=== PATIENT | male | born 1985 | race Caucasian/White ===

== ENCOUNTER 2016-07-04 20:54 | Emergency (ER) | payer MEDICAID ==
[2016-07-04 21:15] VITALS: RESP 16; TEMP 98.1
[2016-07-04] MEDS ORDERED: FLUORESCEIN SODIUM 1 MG STRIP OP ONE ×2 (21:33→21:35)
[2016-07-04] MEDS ORDERED: PROPARACAINE 0.5% 15 ML OPHT DROP ONE (21:33)
[2016-07-04] MEDS ORDERED: PROPARACAINE 0.5% 15 ML OPHT DROP LEFTEYE ONE (21:36)
[2016-07-04] MEDS ORDERED: CIPROFLOXACIN 0.3% DROPS PREPACK OPHT.BTL TAKEHOME ONE (21:49)
--- NOTE | 2016-07-04 21:51 | EDPHY ---
H & P Stated Complaint: L eye irritation, tearing HPI/ROS: Chief complaint: Left eye discomfort History of present illness: This is a 30-year-old male who wears disposable soft contact lenses who presents to the emergency department for left eye discomfort. He reports the onset of symptoms earlier today. In addition to discomfort he states his eye is tearing. He denies specific precipitating factors, no history of trauma, no cold symptoms, he has been using his contacts appropriately taking them out nightly. He denies other associated signs or symptoms including no visual disturbances. - Personal History Current Tetanus/Diphtheria Vaccine: Yes Current Tetanus Diphtheria and Acellular Pertussis (TDAP): Yes Tetanus Vaccine Date: 2012 - Medical/Surgical History Hx Asthma: No Hx Chronic Respiratory Disease: No Hx Diabetes: No Hx Cardiac Disease: No Hx Renal Disease: Yes Hx Cirrhosis: No Hx Alcoholism: No Hx HIV/AIDS: No Hx Splenectomy or Spleen Trauma: No Other PMH: Dialysis pt, HTN, hypothyroid, deaf, 2 kidney transplants - Social History Smoking Status: Never smoked - Physical Exam Exam: General Appearance: Alert, nontoxic. Eyes: Tearing of the left eye, no pustular discharge. Mild injection of the conjunctiva of the left. No subconjunctival hemorrhages. No hyphema. No hypopyon. PERRLA. EOM intact. Red reflex present bilaterally. ENT: Tympanic membranes, external auditory canals, external ears and surrounding soft tissue including over the mastoids are unremarkable. Nasopharynx is not injected. There is no rhinorrhea. Oropharynx is not injected. There is no edema. There is no exudate. There is no asymmetry. The uvula is midline. No elevation of the tongue. There is no hoarseness, no drooling, no trismus, no stridor. Respiratory: Chest is nontender, lungs are clear to auscultation. Cardiac: regular rate and rhythm. Skin: Periorbital tissue unremarkable. Constitutional: Initial Vital Signs Temperature (C) 36.7 C 07/04/16 21:14 Heart Rate 90 07/04/16 21:14 Respiratory Rate 16 07/04/16 21:14 Blood Pressure 174/106 H 07/04/16 21:14 O2 Sat (%) 99 07/04/16 21:14 O2 Delivery Mode Room Air Allergies/Adverse Reactions: No Known Allergies Allergy (Verified 02/19/17 21:13) Home Medications: Medication Instructions Recorded Calcium Carbonate [Tums 500MG (*)] 1,000 mg PO BID 06/25/13 Epoetin Eugene [Epogen] 3,300 unit IJ MOWEFR PRN 06/25/13 Multivitamins [Multivitamin (*)] 1 each PO DAILY 06/25/13 Labetalol HCl [Trandate 200 mg (*)] 600 mg PO TID #90 tab 08/28/13 Minoxidil [Minoxidil 2.5 mg (*)] 7.5 mg PO BID #60 tab 08/28/13 Medical Decision Making Procedures: Visual acuity 20/50 left eye, 20/40 right eye, 20/20 both eyes Patient's eye was anesthetized with proparacaine and stained with floor seen. It was examined with cobalt blue and white light. A small filling defect at the 3 o'clock position overlying the iris and pupil was noted. No foreign bodies. No Ivanna sign. No cell and flare. ED Course/Re-evaluation: Patient seen under the supervision of my secondary supervising physician Dr. David Le. Patient presents to the emergency department for left eye discomfort. Ultimately he appears to have a corneal abrasion. He will be started on ciloxin. Asked not to use his contacts until cleared by Ophthalmology. He is referred to ophthalmology and asked to get a recheck this week. Home care is discussed. Return precautions are given. Patient voiced understanding and agreement with plan. Differential Diagnosis: Included but not limited to corneal abrasion, corneal ulceration, foreign body, conjunctivitis - Data Points Medications Given: Discontinued Medications Ciprofloxacin (Ciloxan 0.3% Opht Drops Prepack) 1 btl TAKEHOME EDNOW ONE Stop: 07/04/16 21:50 Last Admin: 07/04/16 22:13 Dose: 1 btl Fluorescein Sodium (Lwkwf-F-Oudyk) 1 mg OP EDNOW ONE Stop: 07/04/16 21:36 Last Admin: 07/04/16 21:45 Dose: 1 mg Proparacaine HCl (Alcaine 0.5%) 1 drops LEFTEYE ONCE ONE Stop: 07/04/16 21:37 Last Admin: 07/04/16 21:45 Dose: 1 drop Departure - Departure Disposition: Home, Routine, Self-Care Clinical Impression: Corneal abrasion Qualifiers: Encounter type: initial encounter Laterality: left Qualified Code(s): S05.02XA - Injury of conjunctiva and corneal abrasion without foreign body, left eye, initial encounter Condition: Good Instructions: Ciprofloxacin (Into the eye), Corneal Abrasion (ED) Additional Instructions: Please call Ophthalmology tomorrow to arrange a follow-up appointment for recheck in 1-2 days Do not use contacts until told you can by Ophthalmology Placed 1 drop of the antibiotic in your eye every 4 hours while awake If symptoms worsen or new symptoms develop return to the emergency department for recheck Referrals: NONE *PRIMARY CARE P,. [Primary Care Provider] - As per Instructions Anu Valentino MD [Medical Doctor] - As per Instructions
[2016-07-04 22:15] VITALS: BP 156/87; PULSE 82; O2SAT 97
== END 2016-07-04 22:15 | disposition home or self-care (01) ==
DX: S05.02XA Injury of conjunctiva and corneal abrasion without foreign body, left eye, initial encounter (principal); I10 Essential (primary) hypertension; X58.XXXA Exposure to other specified factors, initial encounter

== ENCOUNTER 2017-03-29 09:46 | Inpatient (IN) | payer SELFPAY ==
--- NOTE | 2017-03-29 10:14 | CPEKG ---
Heart Rate: 105 RR Interval: 571 P-R Interval: 152 QRSD Interval: 98 QT Interval: 352 QTC Interval: 466 P Peninsula: 14 QRS Peninsula: 9 T Wave Peninsula: 73 EKG Severity - ABNORMAL ECG - EKG Impression: SINUS TACHYCARDIA EKG Impression: PROBABLE LEFT VENTRICULAR HYPERTROPHY Electronically Signed By: Chantelle Landry 29-Mar-2017 14:25:53
[2017-03-29 10:39] LABS: % IMMATURE GRANULYOCYTES 0.5 % (0.0-1.1); ABSOLUTE IMMATURE GRANULOCYTES 0.03 10^3/uL (0.00-0.10); ADD DIFF? NO; ADD MORPH? NO; ADD SCAN? NO; ATYPICAL LYMPHOCYTE FLAG 10 (0-99); FRAGMENT RBC FLAG 0 (0-99); HEMATOCRIT 28.4 % (40.0-51.0); HEMOGLOBIN 9.8 g/dL (13.7-17.5); LEFT SHIFT FLG 0 (0-99); LIPEMIA HEMOLYSIS FLAG 90 (0-99); MEAN CELL HEMOGLOBIN 30.9 pg (27.9-34.1); MEAN CELL HEMOGLOBIN CONCENTR. 34.5 g/dL (32.4-36.7); MEAN CELL VOLUME 89.6 fL (81.5-99.8); MEAN PLATELET VOLUME 9.3 fL (8.7-11.7); PLATELET CLUMPS FLAG 0 (0-99); PLATELET COUNT 257 10^3/uL (150-400); RED BLOOD CELL COUNT 3.17 10^6/uL (4.40-6.38)
--- NOTE | 2017-03-29 10:41 | EDPHY ---
H & P Smoking Status: Never smoked Time Seen by Provider: 03/29/17 10:30 HPI/ROS: CHIEF COMPLAINT: Left-sided chest pain since this morning HISTORY OF PRESENT ILLNESS: 31-year-old male history of renal transplant x2, Tuesday dialysis, awoke with left-sided pleuritic chest pain since this morning described as sharp, stabbing, worse with inspiration. Non positional. No chest pain with exertion or dyspnea with exertion. Today is Tuesday. He had dialysis yesterday described as uneventful. He has been experiencing concurrent URI symptoms for the past few days with nonproductive cough, positive rhinorrhea. No fever or chills. No nausea or vomiting. PRIMARY CARE PROVIDER: Dr. Keron Kim REVIEW OF SYSTEMS: A ten point review of systems was performed and is negative with the exception of the items mentioned in the HPI PAST MEDICAL & SURGICAL HISTORY: Renal transplant. Tuesday dialysis. SOCIAL HISTORY: nonsmoker. No cocaine use. PHYSICAL EXAM (Prior to examination, patient consented to physical exam, hands were washed and my usual and customary physical exam procedures followed) 1) GENERAL: Well-developed, well-nourished, alert and oriented. Appears to be in no acute distress. 2) HEAD: Normocephalic, atraumatic 3) HEENT: Pupils equal, round, reactive to light bilaterally. Sclera anicteric. Nasopharynx, oropharynx, clear, no lesions. 4) NECK: Full range of motion, no meningeal signs. No bruit 5) LUNGS: Clear auscultation bilaterally, no wheezes, no rhonchi, no retractions. 6) HEART: Regular rate and rhythm, no murmur, no heave, no gallop. 7) ABDOMEN: No guarding, no rebound, no focal tenderness, negative McBurney's, negative Ashley's, negative Rovsing's, negative peritoneal sign, 8) MUSCULOSKELETAL: Moving all extremities, no focal areas of tenderness, no obvious trauma. No peripheral edema or discoloration. Negative Homans no palpable cord 9) BACK: No CVA tenderness, no midline vertebral tenderness, no fluctuance, no step-off, no obvious trauma, no visual or palpable abnormality. 10) SKIN: No rash, no petechiae. 11) Psychiatric: Patient is oriented X 3, there is no agitation. DIFFERENTIAL DIAGNOSIS: In no particular order, including but not limited to myocardial ischemia, pulmonary embolus, chest wall pain, pleural inflammation and pulmonary infectious causes. (Wendy Carroll) Constitutional: Initial Vital Signs Temperature (C) 36.8 C 03/29/17 09:55 Heart Rate 112 H 03/29/17 09:55 Respiratory Rate 20 03/29/17 09:55 Blood Pressure 187/107 H 03/29/17 09:55 O2 Sat (%) 96 03/29/17 09:55 O2 Delivery Mode Room Air Allergies/Adverse Reactions: No Known Allergies Allergy (Verified 03/29/17 09:55) Home Medications: Medication Instructions Recorded Calcium Carbonate [Tums 500MG (*)] 1,000 mg PO BID 06/25/13 Epoetin Eugene [Epogen] 3,300 unit IJ MOWEFR PRN 06/25/13 Labetalol HCl [Trandate 200 mg (*)] 600 mg PO TID #90 tab 08/28/13 Minoxidil [Minoxidil 2.5 mg (*)] 7.5 mg PO BID #60 tab 08/28/13 Metoprolol Tartrate [Lopressor 25 50 mg PO BID 03/29/17 mg (*)] MDM/Departure - MDM Diagnostics: 12 lead EKG is interpreted in Trace master View by emergency department physician. (Chantelle Landry) Imaging Results: Images reviewed by myself (Wendy Carroll) Medications Given: Acetaminophen (Tylenol) 650 mg PO Q4HRS PRN PRN Reason: Pain, Mild/Fever, Can Take PO Stop: 09/25/17 12:34 Last Admin: 03/29/17 22:21 Dose: 650 mg Calcium Carbonate (Tums) 1,000 mg PO BID LASHELL Stop: 09/25/17 20:59 Last Admin: 03/29/17 20:15 Dose: 1,000 mg Labetalol HCl (Trandate Injection) 20 mg IVP Q4HRS PRN PRN Reason: sys >180 Stop: 09/25/17 16:01 Last Admin: 03/29/17 16:18 Dose: 20 mg Metoprolol Tartrate (Lopressor) 50 mg PO BID LASHELL Stop: 09/25/17 20:59 Last Admin: 03/29/17 20:16 Dose: 50 mg Minoxidil (Minoxidil) 7.5 mg PO BID LASHELL Stop: 09/25/17 20:59 Last Admin: 03/29/17 20:15 Dose: 7.5 mg Discontinued Medications Labetalol HCl (Labetalol Hcl) 10 mg IVP ONCE ONE Stop: 03/29/17 11:38 Last Admin: 03/29/17 11:49 Dose: Not Given Labetalol HCl (Trandate Injection) 10 mg IVP ONCE ONE Stop: 03/29/17 11:46 Last Admin: 03/29/17 11:49 Dose: 10 mg ED Course/Re-evaluation: 10:44 a.m.: Will obtain diagnostic studies on this patient. Old medical records reviewed. Discussed the case with secondary supervising physician Dr. Chantelle Landry in the ER. 11:48 a.m.: Consultation with hospitalist, Elsa, admit to Dr. Damon PCU 12:07 p.m.: Phone consultation with Dr. Keron Kim who is familiar with the patient, he will consult Nephrology (Wendy Carroll) The patient was evaluated and managed by the physician land surveyor assistant. I have reviewed this chart and I agree with the findings and plan of care as documented , as indicated by my signature. I am the secondary supervising physician. I reviewed the patient's chest x-ray and laboratory studies. (Chantelle Landry) - Depart Disposition: [facility] Inpatient Acute Clinical Impression: Elevated troponin, End stage renal disease Chest pain Qualifiers: Chest pain type: chest pain on breathing Qualified Code(s): R07.1 - Chest pain on breathing Fluid overload Qualifiers: Hypervolemia type: other Qualified Code(s): E87.79 - Other fluid overload Hypertension Qualifiers: Hypertension type: unspecified Qualified Code(s): I10 - Essential (primary) hypertension Condition: Fair
[2017-03-29 10:48] LABS: ANION GAP 18 mEq/L (8-16); CALCIUM 9.2 mg/dL (8.5-10.4); CARBON DIOXIDE 28 mEq/l (22-31); CHLORIDE 94 mEq/L (97-110); GLOMERULAR FILTRATION RATE 7; GLUCOSE 121 mg/dL (70-100); SODIUM 140 mEq/L (134-144)
[2017-03-29 10:51] LABS: CREATININE 9.1 mg/dL (0.7-1.3)
[2017-03-29 11:00] LABS: TROPONIN I 0.072 ng/mL (0.000-0.034)
[2017-03-29] MEDS ORDERED: LABETALOL HCL 50 MG/10 ML SYR IVP ONE (11:37)
[2017-03-29] MEDS ORDERED: LABETALOL HCL 5 MG/ML 20 ML MDV IVP ONE (11:45)
[2017-03-29] MEDS ORDERED: HYDROmorphONE/DILAUDID 1 MG/ML INJ IVP PRN (12:35)
[2017-03-29] MEDS ORDERED: ONDANSETRON DISINTEGRATING 4 MG TAB PO PRN (12:35)
[2017-03-29] MEDS ORDERED: HYDROCODONE/APAP 5/325 TAB PO PRN (12:35)
[2017-03-29] MEDS ORDERED: ONDANSETRON 4 MG/2 ML VIAL IVP PRN (12:35)
[2017-03-29] MEDS ORDERED: HYDROmorphone HCL/NS/PF 0.4 MG/2 ML SYR IVP PRN (12:47)
--- NOTE | 2017-03-29 14:29 | ASMTCASEMG ---
Living Arrangements What is your living Answers: Alone arrangement? Who do you live with? Type Of Residence What kind of residence do Answers: House you live in? Discharge Plan Comments Coordination Status Comments Notes: Pt is a 31 y/o man admitted for left sided chest pain. Pt has a hx of renal transplant x2. Pt is a dialysis pt. Anticaptes that pt will d/c independent without any needs. No therapies ordered at this time. CM available for changes. Date Signed: 03/29/2017 02:28 PM Electronically Signed By:HUA Lan
[2017-03-29] MEDS ORDERED: LABETALOL HCL 5 MG/ML 20 ML MDV IVP PRN (16:02)
--- NOTE | 2017-03-29 16:17 | ECHO ---
[email or web address] [address] [address] Main: [phone] Fax: Transthoracic Echocardiogram Name: RAMIRO KRUGER MR#: [id number] Study Date: 03/29/2017 Study Time: 01:29 PM Date of : 1985 Age: 31 year(s) Height: 175.3 cm (69 in.) Weight: 82.55 kg (182 lb.) BSA: 1.98 m2 Gender: Male Examination: Echo Indication: Chest pain/renal transplant Image Quality: Contrast: Requested by: Keron Kim BP: 184 mmHg/116 mmHg Heart Rate: Rhythm: Indication: Chest pain/renal transplant Procedure Staff Nuclear Waste Management Engineer: Maureen Bhatti Reading Physician: Willie Pappas Requesting Provider: Conclusions: Normal size left ventricle. Mild concentric LV hypertrophy. Normal global systolic LV function. EF is 76 %. Mild mitral valve regurgitation is present. Trivial aortic valve regurgitation. Mild tricuspid regurgitation is present. The pulmonary artery pressure is normal. Measurements: Chambers Valvular Assessment AV/MV Valvular Assessment TV/PV Normal Normal Normal Name Value Range Name Value Range Name Value Range Ao Etelvina (MM): 4.4 cm (2.2 cm-3.7 AV meanP mmHg ( - ) TR Vmax: 2.85 mm/s ( - ) cm) MV E Vmax: 1.27 m/s ( - ) TR PGmax: 32 mmHg ( - ) IVSd (2D): 1.1 cm (0.6 cm-1.1 MV A Vmax: 0.78 m/s ( - ) syst. PAP: 37 mmHg ( - ) cm) MV E/A: 1.63 ( - ) LVDd (2D): 5.4 cm (4.2 cm-5.9 cm) LVDs (2D): 3.3 cm (2.1 cm-4 cm) LVPWd (2D): 1.4 cm (0.6 cm-1 cm) LVEF (MOD4): 76 % (>=55 %) Continued Measurements: Chambers Valvular Assessment AV/MV Valvular Assessment TV/PV Name Value Name Value Name Value LADs: 4.5 cm MV E/E' Septal: 18.10 CVP (est.): 5 mmHg Patient: RAMIRO KRUGER Study Date: 03/29/2017 Page 1 of 2 01:29 PM LADs Lon.4 cm MV E/E' Lateral: 16.50 LA Area: 18.5 cm2 Additional Vessels Name Value Ao Ascendin.4 cm Findings: Left Ventricle: Normal size left ventricle. Mild concentric LV hypertrophy. Normal global systolic LV function. EF is 76 %. No regional wall motion abnormality. Normal diastolic LV function. Right Ventricle: Normal size right ventricle. Left Atrium: The left atrium is normal in size. Mitral Valve: The mitral valve is normal in appearance and function. Mild mitral valve regurgitation is present. Aortic Valve: The aortic valve is normal in appearance and function. Trivial aortic valve regurgitation. Tricuspid Valve: The tricuspid valve is normal in appearance and function. Mild tricuspid regurgitation is present. The pulmonary artery pressure is normal. Pulmonic Valve: The pulmonic valve is normal in appearance and function. Trivial to mild pulmonic valve regurgitation. Aorta: The aorta is normal. Pericardium: No pericardial effusion. (No Signature Object) Patient: RAMIRO KRUGER Study Date: 03/29/2017 Page 2 of 2 01:29 PM [id number]
--- NOTE | 2017-03-29 18:02 | GHP ---
[f rep st] HISTORY AND PHYSICAL DATE OF ADMISSION: 03/29/2017 CHIEF COMPLAINT: Chest pain. HISTORY OF PRESENT ILLNESS: The patient is a 31-year-old man with history of end-stage renal disease and chronic hemodialysis, that came to the emergency department today because of a new onset of chest pain. He says that for about the last 2 weeks, he has been having increased blood pressures. He does hemodialysis 3 times a week. Says casting and pasting supervisor has made changes to his chronic medications but blood pressures have remained elevated. He says this morning he woke up with a sharp chest pain in the left side of his chest. He denied shortness of breath. He denies any heartburn symptoms. He says this pain was similar to episodes he had in 2013 when he was admitted a few times to [facility] because of chest pain and hypertensive emergency. He has had a mild headache. He denies any visual changes. He had a mild cough and cold a few weeks ago, but denied any fever at that time or currently. He says that he no longer feels sick, but he has had a little bit of a cough that has been dry mostly in the morning and at night. He denies any vomiting, diarrhea, or abdominal pain. He was receiving hemodialysis when I saw him, and he says that he is currently chest pain free. He describes an issue that was recently noted at hemodialysis where 'not enough fluid volume was taken off', but he said that was corrected and has had at least a few dialysis sessions that were "back to normal." REVIEW OF SYSTEMS: A complete review of systems was conducted and negative, except as noted in the HPI. PAST MEDICAL HISTORY: 1. end-stage renal disease with hemodialysis on Tuesday, Tuesday, Tuesday, primary casting and pasting supervisor is Dr. Kim. 2. Anemia of chronic disease. 3. Chronic hypercalcemia. 4. Hypertension. 5. Depression. 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 MEDICATIONS: Minoxidil 7.5 mg twice a day. Lopressor 50 mg twice a day. Epo as needed. Calcium carbonate 1000 mg twice a day. He had been on labetalol 600 mg 3 times a day, but reports this was recently changed in favor of metoprolol. ALLERGIES: No known drug allergies. SOCIAL HISTORY: Denies tobacco, alcohol, or drug use. 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 PHYSICAL EXAM: VITAL SIGNS: Blood pressure was 165/107, but was as high as 188/115, pulse 96, temperature is 99.3, and he was 94% on room air. GENERAL: He is a pleasant male in no apparent distress. HEENT: Normocephalic, atraumatic. Extraocular movements are intact. Sclerae are anicteric. Conjunctivae are not injected. Mucous membranes are moist. NECK: Supple. No JVD noted. LUNGS: Clear to auscultation bilaterally. CARDIOVASCULAR: Regular rate and rhythm with a pronounced/hyperdynamic S1, S2, but no murmurs appreciated. ABDOMEN: Soft, nontender, nondistended. Normoactive bowel sounds. No masses noted. EXTREMITIES: No edema. NEUROLOGICAL: Grossly nonfocal/intact. SKIN: Shows cap refill less than 2 seconds. PSYCH: alert/oriented LABS: White blood cell count 6.5, hemoglobin 9.8, hematocrit 28.4, platelet count of 257 (stable hemoglobin, hematocrit per chart review). D-dimer is 0.32. Sodium 140, potassium 4.0, chloride of 94, carbon dioxide 28, anion gap of 18, BUN of 44, creatinine 9.1, glucose 121. Troponin 0.072. ProBNP is 3200. Chest x-ray showed diffuse ground-glass pattern with some cephalization, personally reviewed by myself. EKG showed sinus tachycardia with an LVH by voltage. No Q-waves. Normal ST segments. ASSESSMENT/PLAN: 1. Chest pain. He is admitted to telemetry for observation. Serial troponins ordered. He is currently receiving hemodialysis. Echocardiogram has been ordered and final review is pending at time of dictation. Suspect left ventricular strain causing a slight bump in troponins. Low threshold to consult Cardiology if further elevation or abnormal telemetry noted. We will hold off on anticoagulation as he is currently on dialysis. P.r.n. labetalol has been ordered for systolics greater than 180. 2. End-stage renal disease, having dialysis today. Nephrology has also already seen him and their input is appreciated. Likely will have hemodialysis again tomorrow, but will defer to Nephrology. DISPOSITION: Admitted for observation, but may need to be changed to inpatient depending on cardiac evaluation and response to hemodialysis and blood pressure management. DEEP VENOUS THROMBOSIS PROPHYLAXIS: Ambulation, pharmacological deferred at this time. /[id number]/MODL MTDD
[2017-03-29] MEDS: MINOXIDIL 2.5 MG TAB PO SCH (20:15)
[2017-03-29] MEDS: CALCIUM CARBONATE 500 MG CHEWABLE TAB PO SCH (20:15)
[2017-03-29] MEDS: METOPROLOL TARTRATE 50 MG TAB PO SCH (20:16)
--- NOTE | 2017-03-29 21:58 | GCON ---
[f rep st] CONSULTATION NEPHROLOGY CONSULTATION DATE OF CONSULTATION: 03/28/2017 REASON FOR CONSULTATION: End-stage renal disease, refractory hypertension. 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 on a Tuesday, Tuesday, Tuesday schedule. He has been under my care for many years, and I know him well. The patient is an excellent historian. The patient has been very compliant with his dialysis. Approximately 4 weeks ago, he went through a period where there were some technical issues with his dialysis machine, and he did not get significa nt ultrafiltration on several runs. His weight increased to around 88 kg above his normal dry weight of 83. At that time, his blood pressure did begin increasing. Since that time, we have steadily de creased his dry weight and, most recently, he has been between 80 and 81 kg. In addition, we have increased his antihypertensives. With this, he has not really noticed major improvements in his blood pressure. Over the past 3 weeks, the patient has felt as if he has had an upper and lower respiratory tract inf ection. He feels his energy level and appetite may be down slightly. He has had some epistaxis. He has not had a productive cough. He has not been taking decongestants. The patient was awakened this a.m. with sharp mid epigastric to substernal pains. These would last a few seconds and then dissipate. Because of this, he presented to the emergency room for further otoniel luation. In the emergency room, he was found to have some alveolar infiltrates and was hypertensive. He is now being admitted for definitive care. Relating to these findings, we are asked by the [facility] physician to assist the patient's renal diagnosis and management. PAST MEDICAL HISTORY: 1. HDR syndrome. 2. Status post 2 failed transplants. Both transplants failed due to noncompliance. The most recent transplant was performed at the [facility] from a cadaveric source. He returned to dial ysis in 2012. 3. Persistent hypocalcemia due to his genetic hypoparathyroidism. 4. Hypertension. 5. Depression. PAST SURGICAL HISTORY: 1. Fistula placement. 2. Transplants x2. 3. Transplant nephrectomy. 4. Urology surgeries as a child. FAMILY HISTORY: Noncontributory. HOME MEDICATIONS: 1. Labetalol 200 mg in the morning, 300 mg at night. 2. Minoxidil 7.5 mg b.i.d. 3. Calcium carbonate with meals. SOCIAL HISTORY: The patient is from the [place] area. He lives independently in [place]. 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 He does not smoke ciga rettes or drink alcohol. REVIEW OF SYSTEMS: GENERAL: He has not had fevers, chills or sweats. His appetite may be mildly de creased. HEENT: He has had a mild headache. He denies vision disturbances. He has had some rhinit is and some mild epistaxis. He denies a sore throat. RESPIRATORY: He has had some cough. CARDIAC: He has the aforementioned atypical chest pain. GASTROINTESTINAL: He denies abdominal pain, consti pation, or diarrhea. He denies dysuria. EXTREMITIES: He denies lower extremity edema. SKIN: He d enies skin rashes. ENDOCRINE: He does not have a history of thyroid or diabetes. He does have hypo parathyroidism. PHYSICAL EXAMINATION: GENERAL: At the time of exam, the patient is well-developed, well-nourished, alert and oriented. VITAL SIGNS: Temperature afebrile. Pulse 97. Blood pressure 165/107. EYES: Sclerae clear. OROPHARYNX: Clear. NECK: No lymphadenopathy or thyromegaly. LUNGS: Some coarse b reath sounds are heard throughout. CARDIOVASCULAR: Regular rate and rhythm with a systolic murmur a t the left upper sternal border. ACCESS: The patient does have access with a significant pseudoaneu rysm. Flow has been good through his access. ABDOMEN: Nontender. /RECTAL: Deferred. EXTREMITI ES: No lower extremity edema. INTEGUMENT: Clear. NEURO: No focal findings. LABORATORY STUDIES: White count 6.5, hematocrit 28.4, platelets 257. Sodium 140, potassium 4.0, cre atinine 9.1, calcium 9.2. Troponin 0.072. IMPRESSION AND PLAN: 1. Severe hypertension. The patient previously had an episode of severe hypertension. He ultimatel y improved by aggressive volume removal. Prior to that volume removal, he was refractory to antihype rtensive agents. At this point, his rather sudden onset of hypertension is a bit confusing, but I do believe our first line of therapy should be additional volume removal. We will plan on ultrafilteri ng him today and again aggressively removing fluid tomorrow. He does not overtly show evidence of vo lume overload on exam. He has been receiving some erythropoietin as an outpatient, but not at high d oses. If this does not improve his blood pressures, then we will need to do further adjustment in hi s medications and perform additional evaluation for the etiology of this new onset of worsened hypert ension. 2. Anemia. This is mild and stable. I will withhold erythropoietin for now given his hypertension. 3. Pulmonary infiltrates. I do believe this is congestive heart failure. However, given his recent symptoms of potentially upper respiratory infection and lower respiratory tract infection, we should consider a noncontrast CT scan if there are further concerns for an atypical pneumonitis. 4. End-stage renal disease. The patient will continue dialysis on a Tuesday, Tuesday, Tuesday sched ul. I will ask Dr. Louise to stop by and evaluate his pseudoaneurysm while he is in-house. Thank you for allowing us to participate in this patient's care. We will continue following closely with you. /[id number]/MODL
[2017-03-29] MEDS ORDERED: LABETALOL HCL 200 MG TAB PO SCH (22:00)
[2017-03-29] MEDS: ACETAMINOPHEN 325 MG TAB PO PRN (22:21)
[2017-03-30 05:59] LABS: ANION GAP 18 mEq/L (8-16); CALCIUM 8.9 mg/dL (8.5-10.4); CARBON DIOXIDE 26 mEq/l (22-31); CHLORIDE 94 mEq/L (97-110); GLOMERULAR FILTRATION RATE 6; GLUCOSE 79 mg/dL (70-100); POTASSIUM 4.2 mEq/L (3.5-5.2); SODIUM 138 mEq/L (134-144)
[2017-03-30 06:12] LABS: CREATININE 10.8 mg/dL (0.7-1.3)
--- NOTE | 2017-03-30 11:44 | SOAPPROG ---
SOAP Progress Note Assessment/Plan: 1. chest pain, resolved -sl elev trop x 2 but stable, no EKG changes, no further sxs -related to severe hypertension -revwd echo findings with him -no further cardiac eval indicated at this time 2. severe HTN -improved after dialysis and prn labetolol yesterday -no further prn doses given and 140-160 sys -no changes to home meds at this time 3. ESRD, chronic dialysis -per nephro, Dr Hamilton rounding today -usually MWF, Dr Kim renal PCP -pending eval with surgery re fistula also per renal request 4. Anemia, from ESRD -stable Subjective: Denies further CP. No SOB/n/v/d/abd pain. Still with occ dry cough. In dialysis. Objective: Vital Signs Temp Pulse Resp BP Pulse Ox 98.8 F 91 18 163/103 H 99 03/30/17 07:16 03/30/17 07:16 03/30/17 07:16 03/30/17 07:16 03/30/17 07:16 Laboratory Results 03/30/17 03:43 03/28/17 03/29/17 03/30/17 11:59 11:59 11:59 Intake Total 420 Output Total 2000 Balance -1580 - Pending Discharge Pending Discharge Within 48 Hours: Yes Pending Discharge Date: 04/01/17 Pending Discharge Time: 11:00 Physical Exam - Physical Exam General Appearance: WD/WN, alert, no apparent distress EENT: normal ENT inspection, pharynx normal Respiratory: chest non-tender, lungs clear, normal breath sounds, No respiratory distress Cardiac/Chest: regular rate, rhythm, No edema, No JVD, No diastolic murmur, No systolic murmur Abdomen: normal bowel sounds, non-tender, soft Skin: normal color, warm/dry Neuro/Psych: alert, normal mood/affect ICD10 Worksheet Patient Problems: Problems Problem Status Onset Chest pain Acute Elevated troponin Acute End stage renal disease Acute Fluid overload Acute Hypertension Acute Corneal abrasion Acute Hypertensive emergency without congestive heart failure Acute Right heart failure Acute
[2017-03-30] MEDS: CALCIUM CARBONATE 500 MG CHEWABLE TAB PO SCH ×2 (12:41→18:13)
[2017-03-30] MEDS: METOPROLOL TARTRATE 50 MG TAB PO SCH ×2 (12:41→20:42)
[2017-03-30] MEDS: MINOXIDIL 2.5 MG TAB PO SCH ×2 (12:41→20:42)
[2017-03-30] MEDS: ACETAMINOPHEN 325 MG TAB PO PRN ×2 (13:46→20:43)
--- NOTE | 2017-03-30 15:33 | SOAPPROG ---
SOKIA Progress Note Assessment/Plan: Assessment: 1. esrd: s/p hd earlier today on typical mwf schedule. Will plan add'l isolated UF treatment tomorrow for volume/hypertension in effort to decrease edw a bit. 2. htn: case d/w Dr. Kim earlier. Pt very volume responsive in past even in absence of other clinical signs of overload. Though bp improved from admit it remains high. Suspect would benefit from add'l decrease in edw, will UF again tomorrow as above. 3. cp: resolved, likely driven at least in part by htn. 4. dispo: should be able to d/c tomorrow s/p dialysis. Plan: 03/30/17 15:20 03/30/17 15:33 Subjective: S/p hd earlier today with 3L uf, had some mild cramping near end of treatment. Had 2L uf during isolated UF treatment yesterday. No further cp. Objective: Vital Signs Temp Pulse Resp BP Pulse Ox 37.2 C 92 16 149/95 H 95 03/30/17 12:37 03/30/17 13:43 03/30/17 12:37 03/30/17 13:43 03/30/17 12:37 Laboratory Results 03/30/17 03:43 03/29/17 03/30/17 03/31/17 05:59 05:59 05:59 Intake Total 420 Output Total 2000 3000 Balance -1580 -3000 Physical Exam - Physical Exam General Appearance: alert, no apparent distress Respiratory: lungs clear Cardiac/Chest: regular rate, rhythm Extremities: pedal edema (none), other (+patent LUE avf) ICD10 Worksheet Patient Problems: Problems Problem Status Onset Chest pain Acute Elevated troponin Acute End stage renal disease Acute Fluid overload Acute Hypertension Acute Corneal abrasion Acute Hypertensive emergency without congestive heart failure Acute Right heart failure Acute
--- NOTE | 2017-03-30 16:29 | PDMN ---
Medical Necessity Medical necessity: M325 renal failure- chronic- NSRD req HD, with CP HTN,
--- NOTE | 2017-03-30 17:24 | SOAPPROG ---
KIA Progress Note Assessment/Plan: Assessment: 31-year-old male here for dialysis/has an enlarging pseudoaneurysm of his right arm AV fistula/no skin ulcerations or erosions/adequate fistula flow He is having no obvious symptoms or problems with this Plan: Would recommend observation at this point/if the pseudoaneurysm is causing difficulties with dialysis could easily be resected. However that would mean is fistula would be down for 2 weeks requiring a neck catheter for dialysis/will discuss with Dr. Kim 03/30/17 17:22 Objective: Vital Signs Temp Pulse Resp BP Pulse Ox 37.2 C 93 16 141/79 H 94 03/30/17 16:15 03/30/17 16:15 03/30/17 16:15 03/30/17 16:15 03/30/17 16:15 Laboratory Results 03/30/17 03:43 03/29/17 03/30/17 03/31/17 05:59 05:59 05:59 Intake Total 420 240 Output Total 1999 3000 Balance -1249 -1748 ICD10 Worksheet Patient Problems: Problems Problem Status Onset Chest pain Acute Elevated troponin Acute End stage renal disease Acute Fluid overload Acute Hypertension Acute Corneal abrasion Acute Hypertensive emergency without congestive heart failure Acute Right heart failure Acute
[2017-03-31 07:12] VITALS: RESP 15
--- NOTE | 2017-03-31 09:34 | SOAPPROG ---
SOAP Progress Note Assessment/Plan: Assessment/Plan: ESRD: on HD MWF. - Doing extra PUF today. - Will need HD tomorrow per routine, can be done at outpatient dialysis unit. Hypervolemia: improved with extra fluid removal this week, will do additional PUF today. HTN: Improved with increased fluid removal. - Will do extra PUF today for more fluid removal. Disposition: would recommend discharge today after PUF treatment unless some other issue encountered. Subjective: No acute events overnight. Pt states that he is feeling fine, no chest pain, no dyspnea, no swelling. He had no issues with HD yesterday. ROS: Positive per above, rest of 10-point ROS negative Objective: Vital Signs Temp Pulse Resp BP Pulse Ox 37.3 C 108 H 15 140/90 H 93 03/31/17 07:11 03/31/17 07:11 03/31/17 07:11 03/31/17 07:11 03/31/17 07:11 Laboratory Results 03/30/17 03:43 03/30/17 03/31/17 04/01/17 05:59 05:59 05:59 Intake Total 420 790 Output Total 1999 3000 Balance -1580 -2210 General: alert and oriented, no acute distress Eyes; EOMI, PERRL OP: Clear CV: RRR Resp: nonlabored respirations on RA, CTA bilat Abd: Soft, NT/ND Ext: no edema BLE Neuro: CN II-XII grossly intact, no asterixis Psych: cooperative, appropriate mood and affect Access: LUE AVF with thrill and bruit, large aneurysm noted ICD10 Worksheet Patient Problems: Problems Problem Status Onset Chest pain Acute Elevated troponin Acute End stage renal disease Acute Fluid overload Acute Hypertension Acute Corneal abrasion Acute Hypertensive emergency without congestive heart failure Acute Right heart failure Acute
[2017-03-31] MEDS: METOPROLOL TARTRATE 50 MG TAB PO SCH (09:51)
[2017-03-31] MEDS: CALCIUM CARBONATE 500 MG CHEWABLE TAB PO SCH (09:51)
[2017-03-31] MEDS: ACETAMINOPHEN 325 MG TAB PO PRN (09:51)
[2017-03-31] MEDS: MINOXIDIL 2.5 MG TAB PO SCH (09:52)
[2017-03-31 13:15] VITALS: BP 145/84; PULSE 97; TEMP 98.8; O2SAT 91
--- NOTE | 2017-03-31 14:26 | PDDCSUM ---
Discharge Summary Discharge Summary: Dates of service 03/29-03/31/17 Consultations: renal Procedures: HD, echocardiogram Hospital course by problem: 1. chest pain, resolved -sl elev trop x 2 but stable, no EKG changes, no further sxs -related to severe hypertension and volume overload -revwd echo findings with him -no further cardiac eval indicated at this time 2. severe HTN -improved after dialysis and largely uncontrolled due to volume status 3. ESRD, chronic dialysis -required extra volume removal, will resume usual MWF HD after discharge 4. Anemia, from ESRD -stable dc home f/u with renal as per routine > 35 min spent in dc more than half in coordination of care
--- NOTE | 2017-03-31 16:22 | ASDISCHSUM ---
Discharge Information Plan Status:Home with No Needs Medically Cleared to Leave:03/30/2017 Discharge Date:03/31/2017 04:05 PM D/C Disposition: ADT D/C Disposition:Home, Routine, Self-Care Projected Discharge Date:03/31/2017 12:00 AM Transportation at D/C: Discharge Delay Reason: Follow-Up Date:03/31/2017 12:00 AM Discharge Slot: Final Diagnosis: Placement Information Patient Contact Information Contact Name:DORITA Relationship:Mother Address:[address] [place] [address] Work Phone: City:[place] Alternate Phone: State/Zip Code:[place] [address] Email: Financial Information Financial Class:Self-Pay Primary Plan Desc:SELF PAY Primary Plan Number: Secondary Plan Desc: Secondary Plan Number: Assessment Information [facility] Initial CM Assessment Living Arrangements What is your living Answers: Alone arrangement? Who do you live with? Type Of Residence What kind of residence do Answers: House you live in? Discharge Plan Comments Coordination Status Comments Notes: Pt is a 31 y/o man admitted for left sided chest pain. Pt has a hx of renal transplant x2. Pt is a dialysis pt. Anticaptes that pt will d/c independent without any needs. No therapies ordered at this time. CM available for changes. Date Signed: 03/29/2017 02:28 PM Electronically Signed By:HUA Lan Intervention Information
== END 2017-03-31 16:05 | disposition home or self-care (01) | DRG 304 ==
LOC: F2W 12:19 → OBSVTOIN 03-30 15:16
PROVIDERS: ADMIT Family Medicine; ATTEND Family Medicine
PROC: 5A1D70Z Performance of Urinary Filtration, Intermittent, Less than 6 Hours Per Day (ICD-10-PCS; principal; 2017-03-30)
DX: I10 Essential (primary) hypertension (principal); E87.70 Fluid overload, unspecified; T82.898A Other specified complication of vascular prosthetic devices, implants and grafts, initial encounter; N18.6 End stage renal disease; Q87.89 Other specified congenital malformation syndromes, not elsewhere classified; D63.1 Anemia in chronic kidney disease; Z94.0 Kidney transplant status; Z99.2 Dependence on renal dialysis; Z90.5 Acquired absence of kidney
CPT/HCPCS: 96374; G0378; J3490

== ENCOUNTER 2017-07-15 10:31 | Emergency (ER) | payer MEDICAID, OTHER ==
[2017-07-15 10:51] LABS: PLATELET COUNT 366 10^3/uL (150-400)
--- NOTE | 2017-07-15 10:55 | CPEKG ---
Heart Rate: 88 RR Interval: 682 P-R Interval: 140 QRSD Interval: 102 QT Interval: 360 QTC Interval: 436 P Williams: 1 QRS Williams: 26 T Wave Williams: 37 EKG Severity - NORMAL ECG - EKG Impression: SINUS RHYTHM Electronically Signed By: Hany Abrams 16-Jul-2017 07:24:19
[2017-07-15 11:03] VITALS: TEMP 98.2
--- NOTE | 2017-07-15 11:17 | EDPHY ---
H & P Time Seen by Provider: 07/15/17 11:04 HPI/ROS: CHIEF COMPLAINT: Syncope HISTORY OF PRESENT ILLNESS: The patient is a 31-year-old male with a history of end-stage renal disease on dialysis who presents emergency department after having a syncopal episode. He normally gets dialysis on Tuesday and Tuesday. He finished dialysis and left the facility. He stated he got slightly lightheaded and had a syncopal episode. He collapsed to the floor striking his head. He awoke with a mild headache. He has had no nausea or vomiting. He initially had some lumbar back pain that is resolved. No neck pain. No chest pain or shortness of breath. No abdominal pain. Patient has no complaints at this time. REVIEW OF SYSTEMS: My complete review of systems is negative except as mentioned in the HPI. Past Medical/Surgical History: Includes end-stage renal disease, anemia, hypercalcemia, hypertension, depression Past surgical history: Failed renal transplant Smoking Status: Never smoked Physical Exam: 36.8, 113/70, 86, 16 GENERAL: Well-appearing, in no acute distress, alert. HEAD: No evidence of trauma. EYES: PERRLA, EOMI, normal to inspection. ENT: Airway intact, no dental or oral injury, no malocclusion, no hemotympanum , normal external examination. NECK: The trachea is midline. There is no crepitus. The C-spine is nontender. NEXUS criteria is negative (no midline tenderness, no distracting injury, no altered mental status, no recent alcohol use, no focal neurologic deficit). RESPIRATORY: Clear to auscultation bilaterally, no rales, rhonchi or wheezing. There is no crepitus or palpable rib fractures. CVS: Regular rate and rhythm, no rubs, murmurs, or gallops. ABDOMEN: Soft, nontender, nondistended, normal bowel sounds, no bruising or abrasions. Pelvis: Stable. No tenderness palpation. Hips full range of motion. BACK: Normal to inspection, no spinal tenderness, no spinal step off, no notable bruising or abrasions. SKIN: Normal color, warm, dry. No pallor or diaphoresis. EXTREMITIES: Right upper extremity: Atraumatic. No visible signs of trauma. No tenderness palpation. Neurovascular intact distally. Left upper extremity: Atraumatic. No visible signs of trauma. No tenderness palpation. Neurovascular intact distally. Right lower extremity: Atraumatic. No visible signs of trauma. No tenderness palpation. Neurovascular intact distally. Left lower extremity: Atraumatic. No visible signs of trauma. No tenderness palpation. Neurovascular intact distally. NEURO/PSYCH: Alert and oriented x 3, GCS 15, normal mood and affect, normal motor sensory exam. Constitutional: Initial Vital Signs Temperature (C) 36.8 C 07/15/17 10:36 Heart Rate 86 07/15/17 10:36 Respiratory Rate 16 07/15/17 10:36 Blood Pressure 113/70 07/15/17 10:36 O2 Delivery Mode Room Air Allergies/Adverse Reactions: No Known Allergies Allergy (Verified 03/29/17 09:55) Home Medications: Medication Instructions Recorded Calcium Carbonate [Tums 500MG (*)] 1,000 mg PO BID 06/25/13 Epoetin Eugene [Epogen] 3,300 unit IJ MOWEFR PRN 06/25/13 Minoxidil [Minoxidil 2.5 mg (*)] 7.5 mg PO BID #60 tab 08/28/13 Metoprolol Tartrate [Lopressor 25 50 mg PO BID 03/29/17 mg (*)] Losartan Potassium 07/15/17 Phoslo (*) 07/15/17 Medical Decision Making - Diagnostics Imaging Results: Imaging Impressions Head CT 07/15/17 11:35 Impression: 1. No acute intracranial findings. If symptoms persist and clinical suspicion warrants, consider MRI. 2. Partial fluid opacification of the mastoid air cells without evidence of osseous destruction to suggest mastoiditis. 3. Additional findings as above. Findings discussed with Dr. Mary Wong on July 15, 2017 at 1211 hours. ED Course/Re-evaluation: In the emergency department I discussed possible etiologies with the patient. I answered all his questions. Laboratory studies and EKG were obtained. Head CT was ordered. EKG shows normal sinus rhythm, normal rate, normal axis, normal intervals. There are no ST or T-wave abnormalities. EKG is normal as interpreted by me. Patient's CBC was remarkable for a white count of 10. Patient is not anemic. Sodium was 1441. Potassium 3.3. Chloride 91. Carbon dioxide 35. Creatinine 5.5. Glucose 134. LFTs unremarkable. Head CT: Please refer the dictated report. No acute disease noted. I discussed the results with the patient. I answered all his questions. On recheck the patient was doing well. He had no focal deficits. He had no complaint of lightheadedness or dizziness. He was given warnings prior to leaving. He will return with worsening symptoms. Differential Diagnosis: My differential includes but is not limited to syncope, dysrhythmia, ACS, dehydration, electrolyte abnormality, sugar abnormality, vasovagal episode, CVA , spinal injury, subarachnoid hemorrhage, subdural hematoma, epidural hematoma - Data Points Laboratory Results: Laboratory Results 07/15/17 10:31 07/15/17 10:31 07/15/17 07/15/17 10:31 10:31 WBC 10.33 10^3/uL H 10^3/uL (3.80-9.50) RBC 4.45 10^6/uL 10^6/uL (4.40-6.38) Hgb 14.1 g/dL g/dL (13.7-17.5) Hct 40.6 % % (40.0-51.0) MCV 91.2 fL fL (81.5-99.8) MCH 31.7 pg pg (27.9-34.1) MCHC 34.7 g/dL g/dL (32.4-36.7) RDW 14.3 % % (11.5-15.2) Plt Count 366 10^3/uL 10^3/uL (150-400) MPV 9.2 fL fL (8.7-11.7) Neut % (Auto) 61.0 % % (39.3-74.2) Lymph % (Auto) 25.6 % % (15.0-45.0) Vilas % (Auto) 7.2 % % (4.5-13.0) Eos % (Auto) 3.7 % % (0.6-7.6) Baso % (Auto) 0.9 % % (0.3-1.7) Nucleat RBC Rel Count 0.0 % % (0.0-0.2) Absolute Neuts (auto) 6.31 10^3/uL 10^3/uL (1.70-6.50) Absolute Lymphs (auto) 2.64 10^3/uL 10^3/uL (1.00-3.00) Absolute Monos (auto) 0.74 10^3/uL 10^3/uL (0.30-0.80) Absolute Eos (auto) 0.38 10^3/uL 10^3/uL (0.03-0.40) Absolute Basos (auto) 0.09 10^3/uL 10^3/uL (0.02-0.10) Absolute Nucleated RBC 0.00 10^3/uL 10^3/uL (0-0.01) Immature Gran % 1.6 % H % (0.0-1.1) Immature Gran # 0.17 10^3/uL H 10^3/uL (0.00-0.10) Sodium 141 mEq/L mEq/L (135-145) Potassium 3.3 mEq/L L mEq/L (3.5-5.2) Chloride 91 mEq/L L mEq/L (97-110) Carbon Dioxide 35 mEq/l H mEq/l (22-31) Anion Gap 15 mEq/L mEq/L (8-16) BUN 30 mg/dL H mg/dL (7-23) Creatinine 5.5 mg/dL H mg/dL (0.7-1.3) Estimated GFR 12 Glucose 134 mg/dL H mg/dL (70-100) Calcium 10.0 mg/dL mg/dL (8.5-10.4) Total Bilirubin 0.9 mg/dL mg/dL (0.1-1.4) AST 24 IU/L IU/L (17-59) ALT 37 IU/L IU/L (21-72) Alkaline Phosphatase 82 IU/L IU/L (38-126) Total Protein 8.1 g/dL g/dL (6.3-8.2) Albumin 4.7 g/dL g/dL (3.5-5.0) Departure - Departure Disposition: Home, Routine, Self-Care Clinical Impression: Syncope and collapse Condition: Good Instructions: Syncope (ED) Additional Instructions: Return with increasing lightheadedness, dizziness or any other concerns. Your laboratory studies and head CT were unremarkable. Referrals: Amelia Andrews MD [Medical Doctor] - 2-3 days, if not improved
[2017-07-15 13:04] VITALS: BP 103/66; PULSE 90; RESP 12; O2SAT 95
== END 2017-07-15 13:03 | disposition home or self-care (01) ==
LOC: EDUNIT#
DX: R55 Syncope and collapse (principal); I12.0 Hypertensive chronic kidney disease with stage 5 chronic kidney disease or end stage renal disease; N18.6 End stage renal disease

== ENCOUNTER → 2017-12-22 | Day surgery (SDC) | payer OTHER ==
--- NOTE | 2017-12-21 11:50 | GHP ---
[f rep st] PREOP HISTORY AND PHYSICAL DATE OF ADMISSION: 12/22/2017 CHIEF COMPLAINT: Left upper extremity AVF aneurysm. 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 He reports that he has had 2 kidney trans plants with the most recent one being about 5 years ago. It subsequently failed 6 months later due t o medication noncompliance. He has been on dialysis ever since. He reports that his fistula works w ell and he has had no issues with dialysis. His care trainer sent him to us for increased skin break down near the aneurysm. Denies pain and left hand numbness. He has not had any imaging recently. PAST MEDICAL HISTORY: Chronic kidney disease, secondary hyperparathyroidism, deafness, hypertension. PAST SURGICAL HISTORY: Kidney transplants x2, left upper extremity AVF, transplant nephrectomy. MEDICATIONS: PhosLo, Renvela. 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 FAMILY HISTORY: Noncontributory. REVIEW OF SYSTEMS: Ten-point review of systems was performed and is negative, except for what is in the HPI. PHYSICAL EXAMINATION: GENERAL: This is a well-appearing 32-year-old male who was well dressed and i n no acute distress. HEENT: Normocephalic, atraumatic. Pupils equal and round. No gross hearing d eficits. Moist mucous membranes. PSYCHIATRIC: Appropriate mood and affect. NEUROLOGIC: Alert and oriented x3. CARDIAC: Regular rate and rhythm. No murmurs, clicks, or rubs. CHEST: Clear to aus cultation bilaterally, without crackles, rales, or rhonchi. ABDOMEN: Soft, nontender, nondistended. SKIN: Warm and dry. No rashes, no jaundice. EXTREMITIES: Left upper extremity AVF with aneurysm . It does have a strong thrill. He has full left radial pulse. SKIN: Superficial to the AVF is so mewhat blanched and thin. ASSESSMENT AND PLAN: This is a 32-year-old patient with a history of chronic kidney disease, who is in need of a revision of his left upper extremity arteriovenous fistula with aneurysmorrhaphy. Discu ssed risks and options fully, and patient wishes to move forward. Risks of the surgery include, but are not limited to, bleeding, infection, damage to surrounding structures including the fistula, and inability to use his fistula for dialysis in the immediate postop period. He may need a temporary ne ck catheter for dialysis while fistula heals from surgery. Patient understands and wishes to proceed with surgery. /[id number]/MODL
[~2017-12-22] MED LIST: ACETAMINOPHEN 500 MG TAB PO PRN; BUPIVACAINE 0.5% 30 ML SDV ONE; LIDOCAINE 1% 300 MG/30 ML SDV ONE; LIDOCAINE 2% 100 MG/5 ML SYR ONE; MIDAZOLAM 2 MG/2 ML VIAL IVP ONE; NALOXONE HCL 0.4 MG/ML INJ IVP PRN; NS 1,000 ML IV ONE; ONDANSETRON 4 MG/2 ML VIAL IVP PRN; PAPAVERINE HCL 60 MG/2 ML SDV ONE; PROPOFOL/EMULSION 500 MG/50 ML BOTTLE IV ONE; PROTAMINE SULFATE 50 MG/5 ML VIAL IVP ONE; THROMBIN (BOVINE) 20,000 UNIT SPRAY TP ONE; THROMBIN (BOVINE) 5,000 UNIT VIAL TP ONE; ceFAZolin 2 GM/DEXTROSE 100 ML IV ONE; fentaNYL 100 MCG/2 ML INJ IVP PRN; fentaNYL 100 MCG/2 ML INJ ONE; oxyCODONE IR 5 MG TAB PO PRN
[2017-12-22 09:10] LABS: PLATELET COUNT 276 10^3/uL (150-400)
--- NOTE | 2017-12-22 09:34 | PDHPUP ---
History & Physical Update H&P update statement: This history and physical update is based on an assessment of the patient which was completed after admission or registration (within 24 hours), but prior to the surgery/procedure. H&P update: H&P reviewed & patient examined, no change in patient's condition since H&P completed
--- NOTE | 2017-12-22 09:51 | PDANEPAE ---
ANE History of Present Illness ESRD here for AVF revision ANE Past Medical History - Cardiovascular History Hx Hypertension: Yes Hx Arrhythmias: No Hx Chest Pain: No Hx Coronary Artery / Peripheral Vascular Disease: No Hx CHF / Valvular Disease: No Hx Palpitations: No Cardiovascular History Comment: hx of htn- no medications at this time. bp has been good. recent ekg and echo in [place] - Pulmonary History Hx COPD: No Hx Asthma/Reactive Airway Disease: No Hx Recent Upper Respiratory Infection: No Hx Oxygen in Use at Home: No Hx Sleep Apnea: No Sleep Apnea Screening Result - Last Documented: Negative Pulmonary History Comment: ESTEFANI TRIGGERS NO DX - Neurologic History Hx Cerebrovascular Accident: No Hx Seizures: No Hx Dementia: No - Endocrine History Hx Diabetes: No Endocrine History Comment: secondary hypoparathyroidism - Renal History Hx Renal Disorders: No Renal History Comment: ESRD. DIALYSIS -- AT [facility] IN [place]. 2 KIDNEY TRANSPLANTS - Liver History Hx Hepatic Disorders: No - Neurological & Psychiatric Hx Hx Neurological and Psychiatric Disorders: No - Cancer History Hx Cancer: No - Congenital Disorder History Hx Congenital Disorders: No - GI History Hx Gastrointestinal Disorders: No - Other Health History Other Health History: wears contacts. bilateral hearing aides - Chronic Pain History Chronic Pain: No - Surgical History Prior Surgeries: left AVF lesion excision with Dani 12/03/14. 2 KIDNEY TRANSPLANTS. LEFT AV FISTULA PLACED 05/04/[address] DANI SIDDIQI Review of Systems Review of Systems: - Exercise capacity METS (RN): 4 METS ANE Patient History - Allergies Allergies/Adverse Reactions: No Known Allergies Allergy (Verified 12/19/17 12:48) - Home Medications Home Medications: Phoslo (*) HS 07/15/17 [Last Taken Unknown] - NPO status NPO Status: no food or drink >8 hours NPO Since - Liquids (Date): 12/21/17 NPO Since - Liquids (Time): 23:30 NPO Since - Solids (Date): 12/21/17 NPO Since - Solids (Time): 20:00 - Anes Hx Anes Hx: no prior problems - Smoking Hx Smoking Status: Never smoked - Alcohol Use Alcohol Use: Rarely - Family Anes Hx Family Anes Hx: none Family Hx Anesthesia Complications: none ANE Labs/Vital Signs - Labs Result Diagrams: 12/22/17 08:50 12/22/17 08:50 - Vital Signs Blood Pressure: 106/74 Heart Rate: 91 Respiratory Rate: 14 O2 Sat (%): 92 Height: 175.26 cm Weight: 75.75 kg ANE Physical Exam - Airway Neck exam: FROM Mallampati Score: Class 2 Mouth exam: normal dental/mouth exam - Pulmonary Pulmonary: no respiratory distress, clear to auscultation - Cardiovascular Cardiovascular: regular rate and rhythym, no murmur, rub, or gallop - ASA Status ASA Status: III ANE Anesthesia Plan Anesthesia Plan: GA w LMA, GA with mask Total IV Anesthesia: Yes
--- NOTE | 2017-12-22 11:49 | POSTANESTH ---
Post Anesthetic Evaluation Cardiovascular Status: Normal, Stable, Similar to Pre-Op Cond Respiratory Status: Normal, Stable, Similar to Pre-op Cond. Level of Consciousness/Mental Status: Can Participate in Eval, Alert and Oriented Pain Control: Adequate, Prn Tx Ordered Nausea/Vomiting Control: Adequate, Prn Tx Ordered Complications Possibly Related to Anesthesia: None Noted
[2017-12-22 12:57] VITALS: BP 92/42
--- NOTE | 2018-01-12 16:28 | POSTOPPROG ---
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
--- NOTE | 2018-01-12 16:56 | GOP ---
[f rep st] OPERATIVE REPORT DATE OF OPERATION: 12/22/2017 SURGEON: González Louise MD MALT ROASTER: Meghan Christianson, nurse practitioner. ANESTHESIOLOGIST: Dr. Costa. PREOPERATIVE DIAGNOSIS: Arteriovenous fistula ulceration. POSTOPERATIVE DIAGNOSIS: Arteriovenous fistula ulceration. PROCEDURE PERFORMED: Arteriovenous fistula revision with excision of skin ulcer and advancement flap closure. FINDINGS: Patient found to have 2 cm area of thinned out and necrotic skin over the AV fistula threa tening potential rupture, although it did not involve the actual fistula. DESCRIPTION OF PROCEDURE: The patient was taken to the operating room where he received satisfactory general endotracheal anesthesia by Dr. Costa. He was placed in the supine position with the left ar m outstretched on an arm board, prepped and draped in usual sterile fashion. An elliptical skin incision was made over the aneurysmal dilatation of the fistula and dissection car ried carefully down through the subcutaneous tissue. The affected skin was dissected off the AV fist danitza, but did not actually involve the vein itself and was relatively easily removed. The specimen wa s removed and sent to Pathology. Skin flaps were elevated up around the fistula and then advanced an d closed with 3-0 Vicryl the subcutaneous tissue and 4-0 Monocryl subcuticular stitch for the skin an d Dermabond. He tolerated the procedure quite well. Blood loss negligible. No complications. /[id number]/MODL
== END | disposition home or self-care (01) ==
LOC: FSGY 08:16
PROVIDERS: ATTEND Surgery
PROC: 0JBH0ZZ Excision of Left Lower Arm Subcutaneous Tissue and Fascia, Open Approach (ICD-10-PCS; principal; 2017-12-22 11:00)
DX: L98.499 Non-pressure chronic ulcer of skin of other sites with unspecified severity (principal); I77.0 Arteriovenous fistula, acquired; N18.9 Chronic kidney disease, unspecified; N25.81 Secondary hyperparathyroidism of renal origin; H91.90 Unspecified hearing loss, unspecified ear; I10 Essential (primary) hypertension
CPT/HCPCS: J0690; J1644; J2001; J2250; J2440; J2704; J2720; J3010

== ENCOUNTER 2018-03-17 15:34 | Emergency (ER) | payer OTHER ==
--- NOTE | 2018-03-17 15:46 | EDPHY ---
H & P Stated Complaint: Chest pain while swimming. Dialysis this am Time Seen by Provider: 03/17/18 15:45 HPI/ROS: CHIEF COMPLAINT: Chest pain HISTORY OF PRESENT ILLNESS: The patient is a 32 y/o male with end-stage renal disease arriving via EMS complaining of central chest pain onset at 14:45, one hour ago, while swimming. Pain was associated with shortness of breath at onset , which has dissipated. He had dialysis on schedule this morning at 05:00 and they took off 4L. He reports his dry weight today was normal at 82.4kg. He is on a MWF schedule and has not missed any sessions. His chest pain is currently present and he is belching. He says, "I think it's acid reflux." He denies recent illness, cough, cold, vomiting, abdominal pain, diarrhea, fever. REVIEW OF SYSTEMS: A ten system review of systems was performed and is negative with the exception of the items mentioned in the HPI. Past medical history: End stage renal failure - back on dialysis for the last 5 years since 2012 (dialysis MWF); hypertension; depression Past surgical history: Two failed transplants Family history: No known cardiac disease Social history: Social alcohol use nothing in the last few weeks. Nonsmoker. No street drugs. 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 Kim Prior medical records reviewed including admission 03/29/17 for chest pain. General Appearance: Alert. Vital signs reviewed. Heart rate 101 at triage. Eyes: Pupils equal and round, no conjunctival injection, no discharge. Anicteric. ENT, Mouth: Mucous membranes are moist, no oropharyngeal erythema or edema. Neck: No lymphadenopathy, supple. Respiratory: Lungs are clear to auscultation; no wheezes, rales, or rhonchi. Cardiovascular: Mildly tachycardic and regular; no murmur, rub, or gallop. Gastrointestinal: Abdomen is soft and nontender, no masses or organomegaly. Skin: Warm and dry, no rashes on exposed skin, normal color. Back: Nontender to palpation over the thoracolumbar spine. No CVAT. Extremities: No lower extremity edema, no calf tenderness or swelling. Neurological: Alert and oriented. Moving all four extremities easily and equally. Psychiatric: Normal affect. - Personal History Current Tetanus/Diphtheria Vaccine: Yes Current Tetanus Diphtheria and Acellular Pertussis (TDAP): Yes Tetanus Vaccine Date: 2012 - Medical/Surgical History Hx Asthma: No Hx Chronic Respiratory Disease: No Hx Diabetes: No Hx Cardiac Disease: No Hx Renal Disease: Yes Hx Cirrhosis: No Hx Alcoholism: No Hx HIV/AIDS: No Hx Splenectomy or Spleen Trauma: No Other PMH: Dialysis pt, HTN, hypothyroid, deaf, 2 kidney transplants - Social History Smoking Status: Never smoked Constitutional: Initial Vital Signs Temperature (C) 37.3 C 03/17/18 15:34 Heart Rate 101 H 03/17/18 15:34 Respiratory Rate 16 03/17/18 15:34 Blood Pressure 117/77 03/17/18 15:34 O2 Sat (%) 93 03/17/18 15:34 O2 Delivery Mode Room Air Allergies/Adverse Reactions: No Known Allergies Allergy (Verified 12/19/17 12:48) Home Medications: Medication Instructions Recorded Phoslo (*) HS 07/15/17 T[employer] 03/17/18 Medical Decision Making - Diagnostics Imaging: I viewed and interpreted images myself ED Course/Re-evaluation: This is a 32 y/o male with end-stage renal disease who presents with chest pain onset 45 minutes ago while swimming. He had dyspnea at onset, which has resolved. His exam is unremarkable. Plan for IV, labs, EKG, chest x-ray. The 12 lead EKG was interpreted by myself. Sinus tachycardia rate 106. See hard copy and/or "tracemaster" electronic copy for interpretation. Troponin is negative. Sodium and potassium are normal. Creatinine elevated as expected. Chest x-ray: no evidence of fluid overload Patient re-evaluated at 4:45 p.m.. At that time he is chest pain-free. He was lying on his left side and stated that that was much more comfortable. He continues to belch. He believes that his pain is due to GERD. 1725: Reevaluated patient. He is sitting up in bed eating and says he feels " 10x better" and would like to be discharged home. 1730: Consulted with Dr. Eugene, nephrology. She will inform Dr. Kim and have patient follow up as an outpatient. I have not found evidence of ACS, pulmonary edema, pericarditis, tamponade, cardiomyopathy (all complications of end stage renal disease). I agree with the patient that his discomfort was most likely related to reflux/gas. - Data Points Laboratory Results: Laboratory Results 03/17/18 15:50 03/17/18 15:50 Point of Care Test Results: Chemistry 03/17/18 15:54 POC Troponin I 0.00 ng/mL ng/mL (0.00-0.08) Departure - Departure Disposition: Home, Routine, Self-Care Clinical Impression: Chest pain Qualifiers: Chest pain type: other chest pain Qualified Code(s): R07.89 - Other chest pain ; R07.8 - Other chest pain Condition: Good Instructions: Chest Pain (ED) Additional Instructions: Follow up with your propagation manager this week. Return to the ED for recurrent symptoms. Referrals: Keron Kim MD [Primary Care Provider] - As per Instructions Report Scribed for: Chantelle Landry Report Scribed by: Hetal Patel Date of Report: 03/17/18 Time of Report: 17:30 Physician Review and Approval Statement: 03/17/18 15:45 Portions of this note were transcribed by the medical clinic manager. I, Dr. Chantelle Landry, personally performed the history, physical exam, and medical decision- making; and confirmed the accuracy of the information in the transcribed note.
[2018-03-17 15:56] LABS: PLATELET COUNT 295 10^3/uL (150-400)
[2018-03-17 17:43] VITALS: BP 111/73
--- NOTE | 2018-03-17 23:24 | CPEKG ---
Test Reason : OPEN Blood Pressure : / mmHG Vent. Rate : 106 BPM Atrial Rate : 106 BPM P-R Int : 137 ms QRS Dur : 096 ms QT Int : 327 ms P-R-T Axes : 018 040 032 degrees QTc Int : 435 ms Sinus tachycardia Confirmed by Chantelle Landry ([id number]) on 03/17/2018 11:24:15 PM Referred By: Confirmed By:Chantelle Landry
== END 2018-03-17 17:55 | disposition home or self-care (01) ==
LOC: EDUNIT#
DX: R07.89 Other chest pain (principal); N18.6 End stage renal disease; I10 Essential (primary) hypertension; E03.9 Hypothyroidism, unspecified; Z94.0 Kidney transplant status
CPT/HCPCS: 84484-PO